=== PATIENT | female | born 1970 | race Caucasian/White ===

== ENCOUNTER 2017-01-30 22:30 | Observation (INO) | payer SELFPAY ==
[2017-01-30 23:24] LABS: BASOPHILS # (AUTO) 0.1 X10^3/uL (0.0-0.1); BASOPHILS % (AUTO) 0.8 % (0.2-1.0); EOSINOPHILS # (AUTO) 0.2 x10^3/uL (0.0-0.2); EOSINOPHILS % (AUTO) 1.9 % (0.9-2.9); HEMATOCRIT 43.1 % (36.0-47.0); HEMOGLOBIN 14.9 g/dL (12.0-16.0); LYMPHOCYTES # (AUTO) 2.6 X10^3/uL (1.3-2.9); MEAN CORPUSCULAR HEMOGLOBIN 29.3 pg (27.0-34.0); MEAN CORPUSCULAR HGB CONC 34.7 g/dL (33.0-35.0); MEAN CORPUSCULAR VOLUME 84.5 fL (80.0-100.0); MEAN PLATELET VOLUME 9.1 fL (7.4-11.0); MONOCYTES # (AUTO) 0.7 x10^3/uL (0.3-0.8); MONOCYTES % (AUTO) 7.8 % (0.0-13.0); NEUTROPHILS # (AUTO) 5.6 x10^3/uL (2.2-4.8); NEUTROPHILS % (AUTO) 61.5 % (42.0-75.0); PLATELET COUNT 259 X10^3/uL (150.0-450.0); RED BLOOD COUNT 5.09 X10^6/uL (3.5-5.4); RED CELL DISTRIBUTION WIDTH 13.7 % (11.6-16.5); WHITE BLOOD COUNT 9.2 X10^3/uL (3.6-10.0)
[2017-01-30] MEDS ORDERED: NIFEDIPINE CAP 10 MG ONE (23:28)
[2017-01-30] MEDS ORDERED: NIFEDIPINE CAP 10 MG PO ONE (23:30)
--- NOTE | 2017-01-30 23:35 | DR.GENAD ---
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 - Family History History of Family Medical Conditions: Yes Family Medical History: Diabetes Mellitus, Cancer, Hypertension - Social History Does patient currently use any type of tobacco product: Yes Have you used tobacco products in the last 12 months: Yes Type of Tobacco Use: Cigarettes Does any household member use tobacco: No Alcohol Use: None Do you use any recreational Drugs:: No Lives With: Family Lives Where: Home - infectious screening In the last 2 months have you had wt loss of >10#?: NO Have you had fever, night sweats or hemotysis?: No Have you traveled outside the country in the last 6 months?: No Isolation: Standard PE - Vital Signs Vitals: Temperature 98.3 F Pulse Rate [Right Brachial] 80 Pulse Rate 82 Respiratory Rate 16 Blood Pressure [Left Arm] 158/95 Blood Pressure [Right Arm] 181/107 Blood Pressure 198/124 O2 Sat by Pulse Oximetry 97 ROR - Labs Reviewed Result Diagrams: 02/01/17 04:20 02/01/17 04:20 Laboratory: WBC 9.2 X10^3/uL (3.6-10.0) 01/30/17 23:05 RBC 5.09 X10^6/uL (3.5-5.4) 01/30/17 23:05 Hgb 14.9 g/dL (12.0-16.0) 01/30/17 23:05 Hct 43.1 % (36.0-47.0) 01/30/17 23:05 MCV 84.5 fL (80.0-100.0) 01/30/17 23:05 MCH 29.3 pg (27.0-34.0) 01/30/17 23:05 MCHC 34.7 g/dL (33.0-35.0) 01/30/17 23:05 RDW 13.7 % (11.6-16.5) 01/30/17 23:05 Plt Count 259 X10^3/uL (150.0-450.0) 01/30/17 23:05 MPV 9.1 fL (7.4-11.0) 01/30/17 23:05 Neut % 61.5 % (42.0-75.0) 01/30/17 23:05 Lymph % 28.0 % (21.0-51.0) 01/30/17 23:05 Wood % 7.8 % (0.0-13.0) 01/30/17 23:05 Eos % 1.9 % (0.9-2.9) 01/30/17 23:05 Baso % 0.8 % (0.2-1.0) 01/30/17 23:05 Neut # 5.6 x10^3/uL (2.2-4.8) H 01/30/17 23:05 Lymph # 2.6 X10^3/uL (1.3-2.9) 01/30/17 23:05 Wood # 0.7 x10^3/uL (0.3-0.8) 01/30/17 23:05 Eos # 0.2 x10^3/uL (0.0-0.2) 01/30/17 23:05 Baso # 0.1 X10^3/uL (0.0-0.1) 01/30/17 23:05 Absolute Nucleated RBC 0.0 /100WBC 01/30/17 23:05 INR Target Range - 01/30/17 23:05 INR 0.96 (0.8-1.3) 01/30/17 23:05 PTT 28.8 SECONDS (22.9-36.5) 01/30/17 23:05 PTT Comment - 01/30/17 23:05 D-Dimer 420 ng/mL (0-400) H* 01/30/17 23:05 Sodium 139 mmol/L (136-145) 01/30/17 23:05 Corrected Sodium TNP 01/30/17 23:05 Potassium 4.2 mmol/L (3.5-5.1) 01/30/17 23:05 Chloride 105 mmol/L (98-107) 01/30/17 23:05 Carbon Dioxide 23.0 mmol/L (21-32) 01/30/17 23:05 BUN 15 mg/dL (7-18) 01/30/17 23:05 Creatinine 0.97 mg/dL (0.55-1.02) 01/30/17 23:05 Est GFR (MDRD) Af Amer > 60 (>60) 01/30/17 23:05 Est GFR (MDRD) Non-Af > 60 (>60) 01/30/17 23:05 Glucose 99 mg/dL (65-99) 01/30/17 23:05 Calcium 9.1 mg/dL (8.5-10.1) 01/30/17 23:05 Corrected Calcium TNP 01/30/17 23:05 Magnesium 1.8 mg/dL (1.7-2.9) 01/30/17 23:05 Total Bilirubin 0.30 mg/dL (0.2-1.0) 01/30/17 23:05 AST 32 Units/L (15-37) 01/30/17 23:05 ALT 27 Units/L (12-78) 01/30/17 23:05 Alkaline Phosphatase 85 Units/L (46-116) 01/30/17 23:05 Creatine Kinase 130 Units/L (26-192) 01/31/17 01:45 CK-MB (CK-2) 4.5 ng/mL (0-4.0) H* 01/31/17 01:45 CK/CKMB % Calc 3.5 % (<4) 01/31/17 01:45 Troponin I 1.08 ng/mL (0-1.5) 01/31/17 01:45 Total Protein 7.7 g/dL (6.4-8.2) 01/30/17 23:05 Albumin 3.5 g/dL (3.4-5.0) 01/30/17 23:05 Globulin 4.2 g/dL (2.5-4.5) 01/30/17 23:05 Albumin/Globulin Ratio 0.8 Ratio (1.1-2.1) L 01/30/17 23:05 - Discharge Plan Disposition: 01 HOME, SELF-CARE Condition: Stable - Follow ups/Referrals - Instructions
[2017-01-30 23:36] LABS: BLOOD UREA NITROGEN 15 mg/dL (7-18); CALCIUM 9.1 mg/dL (8.5-10.1); CHLORIDE 105 mmol/L (98-107); CREATININE 0.97 mg/dL (0.55-1.02); GLUCOSE 99 mg/dL (65-99); SODIUM 139 mmol/L (136-145); TROPONIN I 1.11 ng/mL (0-1.5); eGFR BLACK RACES > 60 (>60); eGFR NON BLACK RACES > 60 (>60)
[2017-01-30 23:54] LABS: D DIMER 420 ng/mL (0-400)
[2017-01-31] LABS: ALANINE AMINOTRANSFERASE 27 Units/L (12-78); ALBUMIN 3.5 g/dL (3.4-5.0); ALKALINE PHOSPHATASE 85 Units/L (46-116); ASPARTATE AMINO TRANSFERASE 32 Units/L (15-37); CKMB % 3.1 % (<4); CREATINE KINASE 164 Units/L (26-192); MAGNESIUM 1.8 mg/dL (1.7-2.9); TOTAL PROTEIN 7.7 g/dL (6.4-8.2)
[2017-01-31 00:01] LABS: CREATINE KINASE MB 5.1 ng/mL (0-4.0)
--- NOTE | 2017-01-31 00:01 | RAD ---
AP Chest Indication: Chest pain Comparison: none available Findings: The trachea is midline. The cardiac silhouette is unremarkable. The lungs are clear without focal infiltrate or effusion. The bony thorax is unremarkable. IMPRESSION: 1. No acute cardiopulmonary abnormality. Reported By:
[2017-01-31] MEDS ORDERED: TORADOL 30 MG VIAL IM ONE (00:34)
--- NOTE | 2017-01-31 01:10 | CT ---
CT brain without contrast Indication: Headache Comparison: None available Technique: Multiple axial images of the brain were obtained from the skull base to the vertex without administr ation of IV contrast. Coronal and sagittal images were also provided. Radiation dose reduction techniques were performed utilizing adjustment for MA/kVP based on patient body size. Findings: Moderate bilateral periventricular deep white matter hypoattenuation without definite loss of hdez-w lois differentiation. No acute intraparenchymal hemorrhage or mass can be identified. No extra-axial fluid collections ar e seen. No alteration in the attenuation of the brain parenchyma can be identified to suggest acute or subacute ischemic change. The ventricular system is symmetric and nondilated. The extracranial structures are grossly unremarkable. IMPRESSION: 1. No acute intracranial process is identified. 2. Moderate bilateral periventricular and deep white matter hypoattenuation, this is out of proporti on for normal amount of microvascular ischemic disease given patient's age. Clinical correlation for history of systemic autoimmune disease or vasculitis is recommended. Reported By:
[2017-01-31 02:35] LABS: CKMB % 3.5 % (<4); TROPONIN I 1.08 ng/mL (0-1.5)
[2017-01-31 02:36] LABS: CREATINE KINASE MB 4.5 ng/mL (0-4.0)
[2017-01-31] MEDS ORDERED: NITROSTAT SL PRN (02:55)
[2017-01-31] MEDS ORDERED: NITRO-BID OINT 2% Multi-Dose tube TD SCH (04:00)
[2017-01-31 04:02] VITALS: BMI 25.2
[2017-01-31] MEDS: NITRO-BID OINT 2% Multi-Dose tube TD SCH ×4 (04:55→20:57)
[2017-01-31] MEDS ORDERED: TYLENOL 325 MG TAB PO PRN (07:56)
[2017-01-31] MEDS ORDERED: ZOFRAN INJ 4 MG VIAL IVP PRN (08:02)
[2017-01-31 08:21] LABS: BASOPHILS # (AUTO) 0.1 X10^3/uL (0.0-0.1); BASOPHILS % (AUTO) 0.9 % (0.2-1.0); EOSINOPHILS # (AUTO) 0.2 x10^3/uL (0.0-0.2); EOSINOPHILS % (AUTO) 1.8 % (0.9-2.9); HEMATOCRIT 39.5 % (36.0-47.0); HEMOGLOBIN 13.5 g/dL (12.0-16.0); LYMPHOCYTES # (AUTO) 2.6 X10^3/uL (1.3-2.9); LYMPHOCYTES % (AUTO) 25.9 % (21.0-51.0); MEAN CORPUSCULAR HEMOGLOBIN 28.9 pg (27.0-34.0); MEAN CORPUSCULAR HGB CONC 34.2 g/dL (33.0-35.0); MEAN CORPUSCULAR VOLUME 84.3 fL (80.0-100.0); MEAN PLATELET VOLUME 9.3 fL (7.4-11.0); MONOCYTES # (AUTO) 0.7 x10^3/uL (0.3-0.8); MONOCYTES % (AUTO) 6.7 % (0.0-13.0); NEUTROPHILS # (AUTO) 6.4 x10^3/uL (2.2-4.8); NEUTROPHILS % (AUTO) 64.7 % (42.0-75.0); PLATELET COUNT 244 X10^3/uL (150.0-450.0); RED BLOOD COUNT 4.69 X10^6/uL (3.5-5.4)
[2017-01-31 08:31] LABS: ALANINE AMINOTRANSFERASE 24 Units/L (12-78); ALBUMIN 3.3 g/dL (3.4-5.0); ALKALINE PHOSPHATASE 78 Units/L (46-116); ASPARTATE AMINO TRANSFERASE 24 Units/L (15-37); BLOOD UREA NITROGEN 11 mg/dL (7-18); CALCIUM 8.9 mg/dL (8.5-10.1); CARBON DIOXIDE 22.4 mmol/L (21-32); CHLORIDE 104 mmol/L (98-107); CHOL/HDL RATIO 4.7 (0.0-5.0); CHOLESTEROL 211 mg/dL (0-200); COR CA(FOR HYPOALB) 9.5 mg/dL (8.5-10.1); GLUCOSE 100 mg/dL (65-99); HDL CHOLESTEROL 45 mg/dL (40-60); SODIUM 139 mmol/L (136-145); TRIGLYCERIDES 112 mg/dL (0-150); eGFR BLACK RACES > 60 (>60); eGFR NON BLACK RACES > 60 (>60)
[2017-01-31] MEDS ORDERED: K-RIDER 10 MEQ/NS 100 ML 10 MEQ/100 ML BAG IV PRN (08:33)
[2017-01-31] MEDS ORDERED: K-DUR TAB 20 MEQ PO PRN (08:33)
[2017-01-31] MEDS ORDERED: POTASSIUM CHLORIDE LIQ 20 MEQ UDC PO PRN (08:33)
[2017-01-31] MEDS ORDERED: K-LYTE EFFERVESCENT PO PRN (08:33)
[2017-01-31 08:36] LABS: PLATELET MORPHOLOGY COMMENT NORMAL (NORMAL)
[2017-01-31 08:38] LABS: CREATINE KINASE MB 3.2 ng/mL (0-4.0); TROPONIN I 1.07 ng/mL (0-1.5)
[2017-01-31] MEDS ORDERED: CATAPRES TAB 0.1 MG PO SCH (09:00)
[2017-01-31] MEDS ORDERED: ZESTRIL TAB 20 MG ONE ×2 (10:02→20:49)
[2017-01-31] MEDS: ZESTRIL TAB 20 MG PO SCH ×2 (10:03→20:58)
--- NOTE | 2017-01-31 10:22 | DR.H&P ---
H&P - History & Physical for Day of: H&P Date: 01/31/17 - Chief Complaint Chief Complaint: chest pain, hypertension - Allergies Allergies/Adverse Reactions: Allergies Allergy/AdvReac Type Severity Reaction Status Date / Time MS Penicillin G Allergy Mild RASH Verified 12/14/15 21:37 [Penicillin G] - History of Present Illness History of Present Illness: Patient is 46 yo female who presented to the emergency room with complaints of chest pain and uncontrolled hypertension. Patient has not been taking her medication for hypertension due to inability to afford. On arrival to the emergency room blood pressure was 198/124. In the emergency room patient received nifedipine 10mg PO . Labs were within normal limits with the exception of Neut# 5.6, CK-MB 5.1 and albumin/Globulin Ratio 0.8. Chest xray showed no acute cardiopulmonary abnormality. EKG showed sinus rhythm with probable left atrial enlargement, left ventricular hypertrophy. Patient was admitted with diagnosis of chest pain and uncontrolled hypertension and placed on the chest pain protocol with serial cardiac enzymes and EKG, Nitroglycerin 0.4mg SL q5min PRN, Clonidine 0.1mg PO BID, Nitroglycerin Ointment every 6hrs, Tylenol 650mg every 4hrs as needed. Zofran 4mg IV Q6hr PRN. Upon seeing patient this am she states she is feeling better and has not had anymore chest pain. Blood pressure is 138/66. Labs are within normal limits with the exception of Neut #6.4, Potassium 3.3, Glucose 100, Albumin 3.3 , Albumin/Globulin Ratio 0.9, Chloesterol 211, LDL Cholesterol 144. Patient placed on potassium protocol for hypokalemia. We are going to discontinue her clonidine and place her on Lisinopril 20mg PO BID. Patient is a low risk for VTE so we will make sure she is ambulating throughout the day. We will follow up with patient in the am with repeat labs and see how her blood pressure is doing. Patient is 46 yo female who presented to the emergency room with complaints of chest pain and uncontrolled hypertension. Patient has not been taking her medication for hypertension due to inability to afford. On arrival to the emergency room blood pressure was 198/124. In the emergency room patient received nifedipine 10mg PO . Labs were within normal limits with the exception of Neut# 5.6, CK-MB 5.1 and albumin/Globulin Ratio 0.8. Chest xray showed no acute cardiopulmonary abnormality. EKG showed sinus rhythm with probable left atrial enlargement, left ventricular hypertrophy. Patient was admitted with diagnosis of chest pain and uncontrolled hypertension and placed on the chest pain protocol with serial cardiac enzymes and EKG, Nitroglycerin 0.4mg SL q5min PRN, Clonidine 0.1mg PO BID, Nitroglycerin Ointment every 6hrs, Tylenol 650mg every 4hrs as needed. Zofran 4mg IV Q6hr PRN. Upon seeing patient this am she states she is feeling better and has not had anymore chest pain. Blood pressure is 138/66. Labs are within normal limits with the exception of Neut # 6.4, Potassium 3.3, Glucose 100, Albumin 3.3, Albumin/Globulin Ratio 0.9, Chloesterol 211, LDL Cholesterol 144. Patient placed on potassium protocol for hypokalemia. We are going to discontinue her clonidine and place her on Lisinopril 20mg PO BID. Patient is a low risk for VTE so we will make sure she is ambulating throughout the day. We will follow up with patient in the am with repeat labs and see how her blood pressure is doing. 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 - Family History Family Medical History: Diabetes Mellitus, Cancer, [place], Coronary Artery Disease, Hypertension - Social History Does patient currently use any type of tobacco product: Yes Have you used tobacco products in the last 12 months: Yes Type of Tobacco Use: Cigarettes Does any household member use tobacco: No Alcohol Use: None Drug Use: None - Medications Home Medications: Motrin PRN - Review of Systems Constitutional: No Symptoms Reported Eyes: No Symptoms Reported ENT: No Symptoms Reported Respiratory: No Symptoms Reported Cardiovascular: Chest Pain, See HPI Gastrointestinal: No Symptoms Reported Genitourinary: No Symptoms Reported Musculoskeletal: No Symptoms Reported Skin: No Symptoms Reported Neurological: No Symptoms Reported - Physical Exam Vital Signs: Temperature 99.0 F Pulse Rate [Right Brachial] 73 Respiratory Rate 12 Blood Pressure [Right Arm] 138/66 O2 Sat by Pulse Oximetry 97 Oriented: Normal Eyes: Normal Ear: Normal Nose: Normal Throat: Normal Respiratory: Clear Throughout Cardiovascular: Normal : Normal Auscultation: Bowel Sounds: Normal Palpation: Normal Tenderness: Normal Skin: Normal Musculoskeletal: Normal Psychiatric: Normal Mood Description: Calm, Appropriate Affect: Normal Speech Pattern: Clear, Appropriate - Assessment/Plan (1) Chest pain Qualifiers: Chest pain type: C Ischemic chest pain type: I Status: Acute Plan: chest pain protocol, Nitroglycerin 0.4mg SL q5min PRN, Nitroglycerin Ointment every 6hrs (2) Hypokalemia Status: Acute Plan: Potassium replacment protocol (3) Hypertension Qualifiers: Hypertension type: H Status: Acute Plan: discontinue clonidine and start lisinopril 20mg PO BID
[2017-01-31 13:51] LABS: CKMB % 2.7 % (<4); CREATINE KINASE MB 2.5 ng/mL (0-4.0); TROPONIN I 0.93 ng/mL (0-1.5)
[2017-01-31] MEDS ORDERED: VISTARIL PO PRN (19:29)
[2017-02-01 05:06] LABS: ALANINE AMINOTRANSFERASE 22 Units/L (12-78); ALBUMIN 2.9 g/dL (3.4-5.0); ALKALINE PHOSPHATASE 67 Units/L (46-116); ASPARTATE AMINO TRANSFERASE 19 Units/L (15-37); BLOOD UREA NITROGEN 26 mg/dL (7-18); CALCIUM 8.5 mg/dL (8.5-10.1); CARBON DIOXIDE 22.8 mmol/L (21-32); CHLORIDE 108 mmol/L (98-107); COR CA(FOR HYPOALB) 9.4 mg/dL (8.5-10.1); CREATININE 0.95 mg/dL (0.55-1.02); GLUCOSE 104 mg/dL (65-99); SODIUM 141 mmol/L (136-145); TOTAL PROTEIN 6.4 g/dL (6.4-8.2); eGFR BLACK RACES > 60 (>60); eGFR NON BLACK RACES > 60 (>60)
[2017-02-01] MEDS: NITRO-BID OINT 2% Multi-Dose tube TD SCH (05:12)
[2017-02-01 06:12] LABS: BASOPHILS # (AUTO) 0.1 X10^3/uL (0.0-0.1); BASOPHILS % (AUTO) 0.6 % (0.2-1.0); EOSINOPHILS # (AUTO) 0.2 x10^3/uL (0.0-0.2); EOSINOPHILS % (AUTO) 1.9 % (0.9-2.9); HEMATOCRIT 39.2 % (36.0-47.0); HEMOGLOBIN 13.2 g/dL (12.0-16.0); LYMPHOCYTES # (AUTO) 3.1 X10^3/uL (1.3-2.9); LYMPHOCYTES % (AUTO) 29.6 % (21.0-51.0); MEAN CORPUSCULAR HEMOGLOBIN 29.2 pg (27.0-34.0); MEAN CORPUSCULAR HGB CONC 33.6 g/dL (33.0-35.0); MEAN CORPUSCULAR VOLUME 86.9 fL (80.0-100.0); MEAN PLATELET VOLUME 9.6 fL (7.4-11.0); MONOCYTES # (AUTO) 0.9 x10^3/uL (0.3-0.8); MONOCYTES % (AUTO) 8.9 % (0.0-13.0); NEUTROPHILS # (AUTO) 6.1 x10^3/uL (2.2-4.8); PLATELET COUNT 244 X10^3/uL (150.0-450.0); RED BLOOD COUNT 4.51 X10^6/uL (3.5-5.4); WHITE BLOOD COUNT 10.4 X10^3/uL (3.6-10.0)
[2017-02-01 08:12] VITALS: BP 126/72
[2017-02-01] MEDS ORDERED: ZESTRIL TAB 20 MG ONE (08:14)
[2017-02-01] MEDS: ZESTRIL TAB 20 MG PO SCH (08:17)
--- NOTE | 2017-02-01 10:22 | DR.CARTERD ---
- Discharge Summary for: Discharge Summary for Date of:: 02/01/17 - Admission Date Date of Admission: 10/31/16 - Admission Diagnoses Admission Diagnosis: Chest Pain. Uncontrolled Hypertension - Discharge Date Discharge Date: 02/01/17 - Discharge Diagnoses Discharge Diagnosis: Chest Pain Uncontrolled Hypertension - Hospital Course Hospital Course: Patient is 46 yo female who presented to the emergency room with complaints of chest pain and uncontrolled hypertension. Patient has not been taking her medication for hypertension due to inability to afford. On arrival to the emergency room blood pressure was 198/124. In the emergency room patient received nifedipine 10mg PO . Labs were within normal limits with the exception of Neut# 5.6, CK-MB 5.1 and albumin/Globulin Ratio 0.8. Chest xray showed no acute cardiopulmonary abnormality. EKG showed sinus rhythm with probable left atrial enlargement, left ventricular hypertrophy. Patient was admitted with diagnosis of chest pain and uncontrolled hypertension and placed on the chest pain protocol with serial cardiac enzymes and EKG, Nitroglycerin 0.4mg SL q5min PRN, Clonidine 0.1mg PO BID, Nitroglycerin Ointment every 6hrs, Tylenol 650mg every 4hrs as needed. Zofran 4mg IV Q6hr PRN. Upon seeing patient this am she states she is feeling better and has not had anymore chest pain. Blood pressure is 138/66. Labs are within normal limits with the exception of Neut # 6.4, Potassium 3.3, Glucose 100, Albumin 3.3, Albumin/Globulin Ratio 0.9, Chloesterol 211, LDL Cholesterol 144. Patient placed on potassium protocol for hypokalemia. We are going to discontinue her clonidine and place her on Lisinopril 20mg PO BID. Patient is a low risk for VTE so we will make sure she is ambulating throughout the day. We will follow up with patient in the am with repeat labs and see how her blood pressure is doing. Patient is 46 yo female who presented to the emergency room with complaints of chest pain and uncontrolled hypertension. Patient has not been taking her medication for hypertension due to inability to afford. On arrival to the emergency room blood pressure was 198/124. In the emergency room patient received nifedipine 10mg PO . Labs were within normal limits with the exception of Neut# 5.6, CK-MB 5.1 and albumin/Globulin Ratio 0.8. Chest xray showed no acute cardiopulmonary abnormality. EKG showed sinus rhythm with probable left atrial enlargement, left ventricular hypertrophy. Patient was admitted with diagnosis of chest pain and uncontrolled hypertension and placed on the chest pain protocol with serial cardiac enzymes and EKG, Nitroglycerin 0.4mg SL q5min PRN, Clonidine 0.1mg PO BID, Nitroglycerin Ointment every 6hrs, Tylenol 650mg every 4hrs as needed. Zofran 4mg IV Q6hr PRN. Upon seeing patient this am she states she is feeling better and has not had anymore chest pain. Blood pressure is 138/66. Labs are within normal limits with the exception of Neut #6.4, Potassium 3.3, Glucose 100 , Albumin 3.3, Albumin/Globulin Ratio 0.9, Chloesterol 211, LDL Cholesterol 144. Patient placed on potassium protocol for hypokalemia. We discontinued clonidine and started on lisiniopril 20mg PO BID. Nitropaste was discontinued as is was causing some hypotension. Vital signs this am are 98.7, 67, 27, 98% on RA, 115/68. Labs are within normal limits with the exception of WBC 10.4, Neut# 6.1, Lymph# 3.1, [place]# 0.9, D-Dimer 420, Chloride 108, BUN 26, Glucose 104 , Albumin 2.9, Albumin/Globulin Ratio 0.8. We are going to discharge patient home in stable condition to follow up in 1 week. She is being discharged on Lisinopril 20mg PO BID and Aspirin 325mg Po Daily. Patient educated on importance of medication compliance. Labs: WBC 10.4, Neut# 6.1, Lymph# 3.1, [place]# 0.9, D-Dimer 420, Chloride 108, BUN 26, Glucose 104, Albumin 2.9, Albumin/Globulin Ratio 0.8. - Discharge Medications Discharge Medications: Aspirin [ASPIRIN 325 MG *] 325 mg PO DAILY #100 tab 02/01/17 [Rx] Lisinopril [ZESTRIL *] 20 mg PO BID #60 tab 02/01/17 [Rx] - Discharge Disposition Discharge Disposition: Home with follow up in 1 week
== END 2017-02-01 11:00 | disposition home or self-care (01) ==
LOC: ER 22:46 → ICU 01-31 02:40
PROVIDERS: ADMIT Internal Medicine; ATTEND Internal Medicine
DX: R07.89 Other chest pain (principal); I10 Essential (primary) hypertension; I25.10 Atherosclerotic heart disease of native coronary artery without angina pectoris; E87.6 Hypokalemia; R13.11 Dysphagia, oral phase; R94.30 Abnormal result of cardiovascular function study, unspecified; E78.2 Mixed hyperlipidemia; Z79.01 Long term (current) use of anticoagulants
CPT/HCPCS: 36415; 70450; 71010; 80053; 80061; 82550; 82553; 83735; 84132; 84484; 85025; 85378; 85610; 85730; 93005; 93010; 96365; 99284; A4216; A4222; Q0177; G0378; J2405

== ENCOUNTER 2017-02-01 18:05 | Emergency (ER) | payer SELFPAY ==
[2017-02-01 18:11] VITALS: BP 196/95; BMI 25.4
--- NOTE | 2017-02-01 19:54 | DR.FBACK ---
HPI - Time Seen Time seen: 19:30 - PCP Primary Care Physician: shoshana pabon - Complaint Chief Complaint Doctor Comments: Patient was discharged today at ~1000 this AM s /p [facility] stay chest pain r/o [place]. When she got home she states that she had back pain similar to the pain she had earlier. She denies dyspnea. She is asymptomatic at this time. Chief Complaint:: chest pain Self Treatment fo Chief Complaint: bp meds and asa - Source History Provided: Patient - Mode of Arrival Mode of Arrival: EMS - Timing Onset of Chief Complaint: 02/01/17 PMH - PMH Past Medical History: Yes Past Medical History: Hypertension Past Medical History Comment: stroke Past Surgical History: Yes Surgical History: Tonsillectomy Past Surgical History Comment: tubal - Family History History of Family Medical Conditions: Yes Family Medical History: Hypertension - Social History Does any household member use tobacco: No Alcohol Use: None Do you use any recreational Drugs:: No Lives With: Significant Other Lives Where: Home - infectious screening In the last 2 months have you had wt loss of >10#?: NO Have you had fever, night sweats or hemotysis?: No Have you traveled outside the country in the last 6 months?: No Isolation: Standard ROS - Review of Systems Eyes: No Symptoms Reported ENTM: No Symptoms Reported Respiratoy: No Symptoms Reported Cardiovascular: No Symptoms Reported Gastrointestinal/Abdominal: No Symptoms Reported Genitourinary: No Symptoms Reported Neurological: No Symptoms Reported Musculoskeletal: No Symptoms Reported Integumentary: No Symptoms Reported Hematologic/Lymphatic: No Symptoms Reported Endocrine: No Symptoms Reported Psychiatric: No Symptoms Reported All Other Systems: Reviewed and Negative PE - Vitals Vital Signs: Temp Pulse Resp BP BP BP Pulse Ox 02/01/17 18:06 98.2 F 85 20 196/95 96 02/01/17 08:00 126/72 126/72 07/21/15 22:15 158/95 - General Limitations: No Limitations General Appearance: Alert, In No Apparent Distress - Head Head Exam: Normal Inspection, Atraumatic - Eyes Eye exam: Normal Appearance, PERRL, EOMI - ENT ENT Exam: Normal Exam - Chest Chest Inspection: Normal Inspection - Respiratory Respiratory Exam: Normal Lung Sounds Bilat Respiratory Exam: Bilateral Clear to Auscultation - Cardiovascular Cardiovascular Exam: Regular Rate, Normal Rhythm - Abdominal Exam Abdominal Exam: Normal Inspection Abdominal Tenderness: negative: RUQ, RLQ, LUQ, LLQ, Epigastrium, Suprapubic, Diffuse, Mild, Moderate, Severe, Other - Genitourinary External Exam: Female: Normal External Exam : Speculum Exam (Female): Normal Speculum Exam : Bimanual Exam (female): Normal Bimanual exam - Extremities Extremities Exam: Normal Inspection, Full ROM - Back Back Exam: Normal Inspection, Full ROM - Neurological Neurological Exam: Alert, Oriented X3, CN II-XII Intact - Psychiatric Psychiatric Exam: Normal Affect, Normal Mood - Skin Skin Exam: Warm, Dry, Intact - Diagnosis Discharge Problem: Anxiety - Discharge Plan Condition: Stable - Follow ups/Referrals Follow ups/Referrals: Vincent Moses [Primary Care Provider] - 3 days - Instructions
== END 2017-02-01 20:03 | disposition home or self-care (01) ==
LOC: ER 18:05
DX: F41.8 Other specified anxiety disorders (principal)
CPT/HCPCS: 99281; 99282

== ENCOUNTER 2017-03-01 03:57 | Emergency (ER) | payer SELFPAY ==
--- NOTE | 2017-03-01 04:07 | DR.CA ---
HPI - Time Seen Time seen: 03:55 - Complaint Chief Complaint Doctor Comments: Patient brought in by EMS in full arrest. 3 epi given down ET tube by EMS. 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 - Source History Provided: Significant Other, EMS - Mode of arrival Mode of Arrival: EMS - Timing Cardiac Arrest Time: unknown - Duration Down time from arrest until ambulance arrival: 10-15 mnutes minimum Total time from arrest until hospital arrival: 20 minutes - Context Onset: Unknown Prehospital Care: Initial Rhythm: Asystole Prehospital: Treatment: CPR, Intubation, Epinephrine Prehospital: Response to Treatment: No Response - Associated Signs and Symptoms Associated Signs and Symptoms: Chest Pain (history) PMH - PMH Past Medical History: Hypertension Past Surgical History: Yes Surgical History: Tonsillectomy - Family History Family Medical History: Hypertension - Social History Do you use any recreational Drugs:: No ROS - Review of Systems Constitutional: Other (unable to obtain) Unable to Obtain Due To: Medical urgency PE - Vitals Vital Signs: BP BP BP 02/01/17 18:06 196/95 02/01/17 08:00 126/72 07/21/15 22:15 158/95 - General Limitations: Other (cardiac arrest) General Appearance: Obtunded, Other (ET tube in place) - Head Head Exam: Normal Inspection - Eyes Eyes: Pupils: Fixed, Dilated - ENT ENT Exam: Other (ET tube in place) - Airway Airway: Intubated (color change on co2 detector) ET tube placement confirmed by: Exam, ETCO2 Gag: Absent - Neck Neck Exam: Normal Inspection, Trachea Midline - Chest Chest Inspection: Normal Inspection - Respiratory Respiratory Exam: Normal Lung Sounds Bilat Respiratory Exam: Bilateral Clear to Auscultation - Cardiovascular Cardiovascular Exam: Other (no pulse no sounds) - Abdominal Exam Abdominal Exam: Normal Inspection. negative: Distention - Extremities Extremities Exam: Normal Inspection. negative: Edema - Neurologic Neurological Exam: Other (GCS 3) - Skin Skin Exam: Intact, Pallor - Diagnosis Discharge Problem: Cardiac arrest - Discharge Plan Disposition: 20 Condition: Stable - Follow ups/Referrals Follow ups/Referrals: Vincent Moses [Primary Care Provider] - 3 days - Instructions
[2017-03-01 04:22] VITALS: BP 0/0; BMI 25.0
[2017-03-01] MEDS ORDERED: SODIUM BICARBONATE 8.4% INJ ADULT IVP ONE (04:30)
[2017-03-01] MEDS ORDERED: K-DUR TAB 20 MEQ PO ONE (06:09)
== END 2017-03-01 06:39 | disposition expired ==
LOC: ER 03:57
PROC: 5A12012 Performance of Cardiac Output, Single, Manual (ICD-10-PCS; principal; 2017-03-01)
DX: I46.9 Cardiac arrest, cause unspecified (principal)
CPT/HCPCS: 92950; 96365; 96374; 99285